=== PATIENT | female | born 1925 | race Caucasian/White ===

== ENCOUNTER 2016-09-20 23:32 | Emergency (ER) | payer MEDICARE | END 2016-09-21 04:26 | disposition short-term general hospital (02) | LOC: ER 23:32 | DX: A41.9 Sepsis, unspecified organism (principal); J69.0 Pneumonitis due to inhalation of food and vomit; I95.9 Hypotension, unspecified; F41.9 Anxiety disorder, unspecified; Z86.73 Personal history of transient ischemic attack (TIA), and cerebral infarction without residual deficits; Z79.82 Long term (current) use of aspirin; Z79.899 Other long term (current) drug therapy; Z66 Do not resuscitate | CPT/HCPCS: 36415; 51701; 96361; 96365; 96367 ==